=== PATIENT | male | born 1960 | race African-American/Black ===

== ENCOUNTER 2020-04-18 15:40 | Observation (INO) ==
[2020-04-18] MEDS ORDERED: hydrALAZINE 20 MG/1 ML VIAL IV STA (17:02)
[2020-04-18 17:43] LABS: Basophils % 0.8 % (0.0-0.8); Eosinophils # 0.4 10*3/uL (0.0-0.87); Eosinophils % 8.8 % (0.00-10.9); Hematocrit 32.8 VOL% (42.0-52.0); Hemoglobin 10.9 GM/DL (14.0-18.0); Immature Granulocytes % 0.2 %; Immature Granulocytes Absolute 0.01 #; Lymphocytes # 0.8 10*3/uL (1.4-4.0); Lymphocytes % 17.2 % (21.2-54.2); Mean Corpuscular HGB Conc 33.2 GM/DL (32-36); Mean Corpuscular Volume 84.5 FL (87-102); Monocytes % 9.4 % (1.7-12.7); Neutrophils % 63.6 % (38.7-73.9); Platelet Count 194 T/CUMM (130-400); Red Blood Count 3.88 MC/CUMM (3.8-5.5); Red Cell Distribution Width 17.1 % (9.3-17.3); White Blood Count 4.8 T/CUMM (4-12)
[2020-04-18 17:56] LABS: PT Patient Result 10.9 SECS (9.8-11.9); Partial Thromboplastin Time 29.6 SECS (23.9-33.8)
[2020-04-18 18:15] LABS: Alanine Aminotransferase 20 U/L (16-61); Albumin 3.2 G/DL (3.4-5.0); Alkaline Phosphatase 102 U/L (45-117); Aspartate Amino Transferase 20 U/L (0-37); Blood Urea Nitrogen 33 MG/DL (7-18); Calcium 9.2 MG/DL (8.5-10.1); Carbon Dioxide 35 MMOL/L (21-32); Estimated Glom Filtration Rate 8 ML/MIN; Glucose 95 MG/DL (74-106); Osmolality,Calculated 285.4 MOS/KG (273-304); Potassium 3.7 MMOL/L (3.5-5.1); Sodium 140 MMOL/L (136-145); Total Protein 8.2 G/DL (5.0-7.5)
[2020-04-18 18:21] LABS: Troponin I 0.343 NG/ML (0.00-0.045)
[2020-04-18] MEDS ORDERED: ONDANSETRON 4 MG/2 ML VIAL ONE (18:30)
[2020-04-18] MEDS ORDERED: LABETALOL 20 MG/4 ML SYRINGE IV STA (19:01)
[2020-04-18] MEDS ORDERED: cefTRIAXone 1,000 MG in SODIUM CHLORIDE 0.9% 100 ML IV STA (19:01)
[2020-04-18] MEDS ORDERED: ONDANSETRON 4 MG/2 ML VIAL IV STA (19:09)
[2020-04-18] MEDS ORDERED: amLODIPine 5 MG TABLET PO STA (20:00)
[2020-04-18] MEDS ORDERED: ACETAMINOPHEN 325 MG TABLET PO PRN (20:18)
[2020-04-18] MEDS ORDERED: GLUCAGON 1 MG VIAL IM PRN (20:18)
[2020-04-18] MEDS ORDERED: ONDANSETRON 4 MG/2 ML VIAL IV PRN (20:18)
[2020-04-18] MEDS ORDERED: DEXTROSE 50% 25 GM/50 ML VIAL IV PRN (20:18)
[2020-04-18] MEDS ORDERED: hydrALAZINE 20 MG/1 ML VIAL IV PRN (20:18)
[2020-04-18] MEDS ORDERED: DOCUSATE SODIUM 100 MG CAPSULE PO PRN (20:18)
[2020-04-18] MEDS ORDERED: amLODIPine 10 MG TABLET PO SCH (21:00)
[2020-04-19 06:02] LABS: Basophils % 0.7 % (0.0-0.8); Eosinophils # 0.2 10*3/uL (0.0-0.87); Eosinophils % 3.7 % (0.00-10.9); Hematocrit 30.2 VOL% (42.0-52.0); Hemoglobin 9.8 GM/DL (14.0-18.0); Immature Granulocytes % 0.5 %; Immature Granulocytes Absolute 0.03 #; Lymphocytes # 0.7 10*3/uL (1.4-4.0); Mean Corpuscular HGB Conc 32.5 GM/DL (32-36); Mean Corpuscular Volume 86.5 FL (87-102); Mean Platelet Volume 11.7 FL (9.6-12.0); Monocytes % 7.2 % (1.7-12.7); Neutrophils % 75.9 % (38.7-73.9); Platelet Count 210 T/CUMM (130-400); Red Blood Count 3.49 MC/CUMM (3.8-5.5); Red Cell Distribution Width 17.1 % (9.3-17.3); White Blood Count 6.2 T/CUMM (4-12)
[2020-04-19 06:48] LABS: Calcium 8.7 MG/DL (8.5-10.1); Osmolality,Calculated 293.1 MOS/KG (273-304); Potassium 4.1 MMOL/L (3.5-5.1); Thyroid Stimulating Hormone 2.21 uIU/ml (0.358-3.74)
[2020-04-19] MEDS: METOPROLOL SUCCINATE XL 100 MG TABLET PO SCH (09:38)
[2020-04-19] MEDS: PANTOPRAZOLE 40 MG TABLET PO SCH (09:38)
[2020-04-19] MEDS: MULTIVITAMIN (BEROCCA) TABLET PO SCH (09:38)
[2020-04-19] MEDS: amLODIPine 10 MG TABLET PO SCH (09:38)
[2020-04-19] MEDS: ASPIRIN EC 81 MG TABLET PO SCH (09:38)
[2020-04-20 07:57] LABS: Basophils # 0.1 10*3/uL (0.0-0.2); Basophils % 0.8 % (0.0-0.8); Eosinophils # 0.7 10*3/uL (0.0-0.87); Eosinophils % 8.9 % (0.00-10.9); Hematocrit 33.5 VOL% (42.0-52.0); Hemoglobin 10.7 GM/DL (14.0-18.0); Immature Granulocytes % 0.1 %; Immature Granulocytes Absolute 0.01 #; Lymphocytes # 1.3 10*3/uL (1.4-4.0); Lymphocytes % 18.2 % (21.2-54.2); Mean Corpuscular HGB Conc 31.9 GM/DL (32-36); Mean Corpuscular Volume 87.2 FL (87-102); Mean Platelet Volume 10.9 FL (9.6-12.0); Monocytes % 7.3 % (1.7-12.7); Neutrophils % 64.7 % (38.7-73.9); Platelet Count 212 T/CUMM (130-400); Red Blood Count 3.84 MC/CUMM (3.8-5.5); Red Cell Distribution Width 17.1 % (9.3-17.3); White Blood Count 7.3 T/CUMM (4-12)
[2020-04-20 08:14] LABS: Calcium 9.2 MG/DL (8.5-10.1); Osmolality,Calculated 282.5 MOS/KG (273-304); Potassium 4.4 MMOL/L (3.5-5.1)
[2020-04-20 08:26] VITALS: BP 156/75
[2020-04-20] MEDS: ASPIRIN EC 81 MG TABLET PO SCH (09:27)
[2020-04-20] MEDS: PANTOPRAZOLE 40 MG TABLET PO SCH (09:28)
[2020-04-20] MEDS: METOPROLOL SUCCINATE XL 100 MG TABLET PO SCH (09:28)
[2020-04-20] MEDS: amLODIPine 10 MG TABLET PO SCH (09:28)
[2020-04-20] MEDS: MULTIVITAMIN (BEROCCA) TABLET PO SCH (09:28)
== END 2020-04-20 15:12 | disposition home or self-care (01) ==
LOC: N.ED 15:40 → N.EDINP 15:40 → N.TELES 04-19 03:43
PROVIDERS: ADMIT Internal Medicine; ATTEND Internal Medicine

== ENCOUNTER 2020-11-02 06:41 | Inpatient (IN) ==
[2020-11-02] MEDS ORDERED: ONDANSETRON 4 MG/2 ML VIAL IV PRN (07:07)
[2020-11-02] MEDS: SODIUM CHLORIDE 0.9% 1,000 ML IV SCH (07:30)
[2020-11-02] MEDS ORDERED: ETOMIDATE 20 MG/10 ML VIAL IV ONE (08:46)
[2020-11-02] MEDS ORDERED: LIDOCAINE 2% 5 ML VIAL ONE ×2 (08:46→13:21)
[2020-11-02] MEDS ORDERED: propofoL 200 MG/20 ML VIAL IV ONE (08:46)
[2020-11-02] MEDS ORDERED: ONDANSETRON 4 MG/2 ML VIAL ONE (09:04)
[2020-11-02 09:51] LABS: Basophils # 0.1 10*3/uL (0.0-0.2); Basophils % 0.6 % (0.0-0.8); Eosinophils # 0.3 10*3/uL (0.0-0.87); Eosinophils % 3.5 % (0.00-10.9); Hematocrit 31.3 VOL% (42.0-52.0); Hemoglobin 9.6 GM/DL (14.0-18.0); Immature Granulocytes % 0.3 %; Immature Granulocytes Absolute 0.03 #; Lymphocytes # 1.3 10*3/uL (1.4-4.0); Lymphocytes % 13.8 % (21.2-54.2); Mean Corpuscular HGB Conc 30.7 GM/DL (32-36); Mean Corpuscular Volume 94.6 FL (87-102); Mean Platelet Volume 10.8 FL (9.6-12.0); Monocytes % 7.6 % (1.7-12.7); Neutrophils % 74.2 % (38.7-73.9); Platelet Count 239 T/CUMM (130-400); Red Blood Count 3.31 MC/CUMM (3.8-5.5); Red Cell Distribution Width 16.3 % (9.3-17.3); White Blood Count 9.1 T/CUMM (4-12)
[2020-11-02 09:59] LABS: PT Patient Result 11.1 SECS (10.5-12.0)
[2020-11-02 10:04] LABS: Calcium 8.5 MG/DL (8.5-10.1); Osmolality,Calculated 292.5 MOS/KG (273-304); Potassium 3.8 MMOL/L (3.5-5.1)
[2020-11-02] MEDS ORDERED: ACETAMINOPHEN 325 MG TABLET PO PRN (10:37)
[2020-11-02] MEDS ORDERED: DEXTROSE 50% 25 GM/50 ML VIAL IV PRN (10:37)
[2020-11-02] MEDS ORDERED: GLUCAGON 1 MG VIAL IM PRN (10:37)
[2020-11-02] MEDS ORDERED: PANTOPRAZOLE 40 MG VIAL IV ONE (10:40)
[2020-11-02 11:54] LABS: ABG Base Excess 2.9 MMOL/L (-2.5-2.5); ABG HCO3 39.6 MMOL/L (20-26); ABG PO2 234.2 MM HG (80-95); ABG TCO2 44.4 MMOL/L (23-27)
[2020-11-02 11:57] LABS: ABG PH 7.018 (7.35-7.45)
[2020-11-02 11:58] LABS: ABG PCO2 157.6 MM HG (35-48)
[2020-11-02] MEDS ORDERED: PHENYLEPHRINE 1 MG/10 ML SYRINGE IV ONE (12:07)
[2020-11-02] MEDS ORDERED: ALBUTEROL/IPRATROPIUM 3 ML NEB RESP TX ONE (12:14)
[2020-11-02] MEDS ORDERED: PHENYLEPHRINE 10 MG/1 ML VIAL IV ONE (12:26)
[2020-11-02 13:01] LABS: Basophils % 0.4 % (0.0-0.8); Eosinophils # 0.2 10*3/uL (0.0-0.87); Eosinophils % 2.2 % (0.00-10.9); Hemoglobin 8.1 GM/DL (14.0-18.0); Immature Granulocytes % 0.8 %; Immature Granulocytes Absolute 0.06 #; Lymphocytes # 1.3 10*3/uL (1.4-4.0); Mean Corpuscular HGB Conc 31.2 GM/DL (32-36); Mean Corpuscular Volume 92.2 FL (87-102); Mean Platelet Volume 11.5 FL (9.6-12.0); Monocytes % 8.2 % (1.7-12.7); NRBC # 0.02 10*3/uL; Neutrophils % 72.4 % (38.7-73.9); Platelet Count 217 T/CUMM (130-400); Red Blood Count 2.82 MC/CUMM (3.8-5.5); Red Cell Distribution Width 16.2 % (9.3-17.3); White Blood Count 7.8 T/CUMM (4-12)
[2020-11-02 13:20] LABS: ABG Base Excess 7.4 MMOL/L (-2.5-2.5); ABG HCO3 31.3 MMOL/L (20-26); ABG PCO2 39.9 MM HG (35-48); ABG PH 7.501 (7.35-7.45)
[2020-11-02] MEDS ORDERED: ROCURONIUM 50 MG/5 ML VIAL IV ONE (13:20)
[2020-11-02 13:21] LABS: Alanine Aminotransferase 11 U/L (16-61); Albumin 2.4 G/DL (3.4-5.0); Alkaline Phosphatase 70 U/L (45-117); Aspartate Amino Transferase 14 U/L (0-37); Bilirubin,Total < 0.39 MG/DL (0.20-1.00); Blood Urea Nitrogen 51 MG/DL (7-18); Calcium 7.9 MG/DL (8.5-10.1); Carbon Dioxide 32 MMOL/L (21-32); Estimated Glom Filtration Rate 12 ML/MIN; Glucose 157 MG/DL (74-106); Potassium 3.9 MMOL/L (3.5-5.1); Sodium 143 MMOL/L (136-145); Total Protein 5.9 G/DL (6.4-8.2)
[2020-11-02] MEDS ORDERED: EPINEPHrine 1 MG/10 ML SYRINGE ONE (13:21)
[2020-11-02] MEDS ORDERED: SEVOFLURANE 1 UNIT/15 MINUTE INH ONE (13:21)
[2020-11-02] MEDS ORDERED: SUCCINYLCHOLINE 200 MG/10 ML VIAL ONE (13:21)
[2020-11-02] MEDS ORDERED: EPINEPHrine 1 MG/ML VIAL ONE (13:21)
[2020-11-02] MEDS ORDERED: SODIUM CHLORIDE 0.9% 500 ML IV ONE (13:21)
[2020-11-02 13:22] LABS: CKMB % 8.2 %
[2020-11-02 13:29] LABS: Eosinophils 1 % (0-10); Lymphocytes 16 % (20-55); Segmented Neutrophils 80 % (50-85); Total Cells Counted 100
[2020-11-02 13:30] LABS: High Sensitive Troponin I* 821.5 ng/L (0-78); Microcytosis 1+; Platelet Estimate Normal; Spherocytes Slight; Target Cells Slight
[2020-11-02] MEDS ORDERED: fentaNYL INJ 1,250 MCG in SODIUM CHLORIDE 0.9% 225 ML IV PRN (13:36)
[2020-11-02] MEDS ORDERED: MIDAZOLAM 2 MG/2 ML VIAL ONE (13:40)
[2020-11-02] MEDS ORDERED: PHENYLEPHRINE INJ 160 MG in SODIUM CHLORIDE 0.9% 234 ML IV PRN (13:54)
[2020-11-02] MEDS ORDERED: MIDAZOLAM 2 MG/2 ML VIAL IV ONE (14:04)
[2020-11-02] MEDS ORDERED: NOREPINEPHRINE 4 MG/4 ML VIAL IV ONE (14:24)
[2020-11-02] MEDS: NOREPINEPHRINE 16 MG in SODIUM CHLORIDE 0.9% 234 ML IV PRN ×2 (14:26→20:20)
[2020-11-02 14:56] LABS: ABG Base Excess 3.6 MMOL/L (-2.5-2.5); ABG HCO3 27.6 MMOL/L (20-26); ABG PCO2 32.9 MM HG (35-48); ABG PH 7.513 (7.35-7.45); ABG TCO2 24.3 MMOL/L (23-27)
[2020-11-02] MEDS ORDERED: LIDOCAINE 1% 20 ML VIAL ONE ×2 (14:57→23:59)
[2020-11-02] MEDS ORDERED: HEPARIN/NACL 0.9% 2 UNITS/ML 2,000 UNIT/1,000 ML BAG IV ONE (14:57)
[2020-11-02 15:28] LABS: CKMB % 8.9 %
[2020-11-02] MEDS: MIDAZOLAM 100 MG in SODIUM CHLORIDE 0.9% 80 ML IV PRN ×2 (16:22→20:20)
[2020-11-02] MEDS ORDERED: HEPARIN DRIP 25,000 UNITS/500 ML PREMIX IV SCH (16:30)
[2020-11-02 17:27] LABS: Alanine Aminotransferase 12 U/L (16-61); Albumin 2.7 G/DL (3.4-5.0); Alkaline Phosphatase 77 U/L (45-117); Aspartate Amino Transferase 24 U/L (0-37); Bilirubin,Total < 0.39 MG/DL (0.20-1.00); Blood Urea Nitrogen 50 MG/DL (7-18); Calcium 8.1 MG/DL (8.5-10.1); Carbon Dioxide 27 MMOL/L (21-32); Estimated Glom Filtration Rate 12 ML/MIN; Glucose 195 MG/DL (74-106); Osmolality,Calculated 303.8 MOS/KG (273-304); Potassium 2.8 MMOL/L (3.5-5.1); Sodium 144 MMOL/L (136-145); Total Protein 5.8 G/DL (6.4-8.2)
[2020-11-02] MEDS: INSULIN LISPRO 100 UNIT/ML SUBCUT SCH (17:51)
[2020-11-02 18:29] LABS: Hemoglobin 8.4 GM/DL (14.0-18.0)
[2020-11-02] MEDS ORDERED: HEPARIN/NACL 0.9% 2 UNITS/ML 1,000 UNIT/500 ML BAG IV SCH (19:30)
[2020-11-02] MEDS: PANTOPRAZOLE 40 MG VIAL IV SCH (21:50)
[2020-11-02 22:10] LABS: Hematocrit 25.6 VOL% (42.0-52.0); Hemoglobin 8.5 GM/DL (14.0-18.0)
[2020-11-02] MEDS ORDERED: POTASSIUM CHLORIDE RIDER 10 MEQ/100 ML PREMIX IV ONE (23:30)
[2020-11-03] MEDS ORDERED: HEPARIN 5,000 UNIT/1 ML VIAL ONE (00:26)
[2020-11-03] MEDS ORDERED: CLOPIDOGREL 300 MG TABLET ONE (01:34)
[2020-11-03] MEDS: INSULIN LISPRO 100 UNIT/ML SUBCUT SCH ×4 (01:56→18:26)
[2020-11-03 05:22] LABS: ABG Base Excess 1.7 MMOL/L (-2.5-2.5); ABG Oxygen Saturation 99.9 % (95-100); ABG PCO2 31.4 MM HG (35-48); ABG PH 7.502 (7.35-7.45)
[2020-11-03 05:44] LABS: Basophils % 0.1 % (0.0-0.8); Hematocrit 23.1 VOL% (42.0-52.0); Hemoglobin 7.6 GM/DL (14.0-18.0); Immature Granulocytes Absolute 0.15 #; Lymphocytes # 0.3 10*3/uL (1.4-4.0); Lymphocytes % 2.2 % (21.2-54.2); Mean Corpuscular HGB Conc 32.9 GM/DL (32-36); Mean Corpuscular Volume 88.2 FL (87-102); Mean Platelet Volume 11.9 FL (9.6-12.0); Monocytes % 5.5 % (1.7-12.7); Neutrophils % 91.2 % (38.7-73.9); Platelet Count 212 T/CUMM (130-400); Red Blood Count 2.62 MC/CUMM (3.8-5.5); Red Cell Distribution Width 15.7 % (9.3-17.3); White Blood Count 14.4 T/CUMM (4-12)
[2020-11-03 05:51] LABS: Albumin 2.2 G/DL (3.4-5.0); Bilirubin,Total 0.9 MG/DL (0.20-1.00); Osmolality,Calculated 305.3 MOS/KG (273-304); Potassium 2.7 MMOL/L (3.5-5.1); Total Protein 5.4 G/DL (6.4-8.2)
[2020-11-03 06:10] LABS: Anisocytosis 1+; Hypochromasia 1+; Lymphocytes 2 % (20-55); Microcytosis 1+; Segmented Neutrophils 95 % (50-85); Total Cells Counted 100
[2020-11-03 06:11] LABS: Platelet Estimate Normal; Target Cells Slight
[2020-11-03] MEDS ORDERED: POTASSIUM CHLORIDE RIDER 10 MEQ/100 ML PREMIX IV ONE (06:31)
[2020-11-03] MEDS ORDERED: POTASSIUM CHLORIDE RIDER 20 MEQ/100 ML PREMIX IV ONE (06:34)
[2020-11-03] MEDS: ASPIRIN CHEW 81 MG TABLET PO SCH (08:18)
[2020-11-03] MEDS: PANTOPRAZOLE 40 MG VIAL IV SCH ×2 (08:18→22:01)
[2020-11-03] MEDS: SODIUM CHLORIDE 0.9% 1,000 ML IV SCH (08:36)
[2020-11-03] MEDS: MIDAZOLAM 100 MG in SODIUM CHLORIDE 0.9% 80 ML IV PRN (09:20)
[2020-11-03 09:42] LABS: ABG Base Excess 4.8 MMOL/L (-2.5-2.5); ABG HCO3 28.8 MMOL/L (20-26); ABG Oxygen Saturation 99.7 % (95-100); ABG PCO2 32.2 MM HG (35-48); ABG PH 7.538 (7.35-7.45); ABG TCO2 25.3 MMOL/L (23-27)
[2020-11-03 09:44] LABS: Hematocrit 20.6 VOL% (42.0-52.0); Hemoglobin 7.1 GM/DL (14.0-18.0)
[2020-11-03 16:28] LABS: Hematocrit 27.4 VOL% (42.0-52.0); Hemoglobin 9.2 GM/DL (14.0-18.0)
[2020-11-04] MEDS: MIDAZOLAM 100 MG in SODIUM CHLORIDE 0.9% 80 ML IV PRN ×2 (03:31→15:28)
[2020-11-04] MEDS: INSULIN LISPRO 100 UNIT/ML SUBCUT SCH ×4 (03:34→19:00)
[2020-11-04 05:35] LABS: ABG Base Excess 5.3 MMOL/L (-2.5-2.5); ABG HCO3 29.2 MMOL/L (20-26); ABG Oxygen Saturation 99.7 % (95-100); ABG PCO2 35.3 MM HG (35-48); ABG TCO2 23.9 MMOL/L (23-27)
[2020-11-04 05:55] LABS: Basophils % 0.1 % (0.0-0.8); Hematocrit 27.4 VOL% (42.0-52.0); Hemoglobin 9.3 GM/DL (14.0-18.0); Immature Granulocytes % 0.9 %; Immature Granulocytes Absolute 0.14 #; Lymphocytes # 0.4 10*3/uL (1.4-4.0); Lymphocytes % 2.6 % (21.2-54.2); Mean Corpuscular HGB Conc 33.9 GM/DL (32-36); Mean Corpuscular Volume 83.5 FL (87-102); Mean Platelet Volume 11.9 FL (9.6-12.0); Neutrophils % 89.4 % (38.7-73.9); Platelet Count 119 T/CUMM (130-400); Red Blood Count 3.28 MC/CUMM (3.8-5.5); Red Cell Distribution Width 16.3 % (9.3-17.3); White Blood Count 14.7 T/CUMM (4-12)
[2020-11-04 06:02] LABS: Albumin 2.1 G/DL (3.4-5.0); Calcium 8.5 MG/DL (8.5-10.1); Osmolality,Calculated 302.3 MOS/KG (273-304); Potassium 3.5 MMOL/L (3.5-5.1); Total Protein 5.5 G/DL (6.4-8.2)
[2020-11-04 06:53] LABS: Anisocytosis 1+; Band Neutrophils 6 % (0-10); Hypochromasia 1+; Lymphocytes 6 % (20-55); Macrocytosis Slight; Platelet Estimate Adequate; Segmented Neutrophils 83 % (50-85); Smudge Cells Few; Target Cells Few; Total Cells Counted 100
[2020-11-04] MEDS: PANTOPRAZOLE 40 MG VIAL IV SCH ×2 (08:23→21:36)
[2020-11-04] MEDS: ASPIRIN CHEW 81 MG TABLET PO SCH (08:23)
[2020-11-04] MEDS: SODIUM CHLORIDE 0.9% 1,000 ML IV SCH (09:36)
[2020-11-04] MEDS ORDERED: NOREPINEPHRINE 8 MG in SODIUM CHLORIDE 0.9% 242 ML IV PRN (10:30)
[2020-11-04] MEDS: ATORVASTATIN 40 MG TABLET PO SCH (21:16)
[2020-11-04] MEDS: METOPROLOL TARTRATE 25 MG TABLET PO SCH (21:38)
[2020-11-05] MEDS: INSULIN LISPRO 100 UNIT/ML SUBCUT SCH ×4 (00:46→17:34)
[2020-11-05 05:03] LABS: ABG Base Excess 4.9 MMOL/L (-2.5-2.5); ABG HCO3 28.6 MMOL/L (20-26); ABG Oxygen Saturation 98.5 % (95-100); ABG PCO2 38.7 MM HG (35-48); ABG PH 7.486 (7.35-7.45); ABG PO2 139.3 MM HG (80-95); ABG TCO2 29.8 MMOL/L (23-27)
[2020-11-05 05:16] LABS: Basophils % 0.1 % (0.0-0.8); Eosinophils % 0.2 % (0.00-10.9); Hematocrit 27.3 VOL% (42.0-52.0); Hemoglobin 9.2 GM/DL (14.0-18.0); Immature Granulocytes % 1.6 %; Immature Granulocytes Absolute 0.24 #; Lymphocytes # 0.4 10*3/uL (1.4-4.0); Lymphocytes % 2.9 % (21.2-54.2); Mean Corpuscular HGB Conc 33.7 GM/DL (32-36); Mean Platelet Volume 12.7 FL (9.6-12.0); Neutrophils % 90.2 % (38.7-73.9); Platelet Count 119 T/CUMM (130-400); Red Blood Count 3.21 MC/CUMM (3.8-5.5); Red Cell Distribution Width 16.2 % (9.3-17.3); White Blood Count 15.1 T/CUMM (4-12)
[2020-11-05 05:36] LABS: Alanine Aminotransferase 38 U/L (16-61); Albumin 1.8 G/DL (3.4-5.0); Alkaline Phosphatase 82 U/L (45-117); Aspartate Amino Transferase 120 U/L (0-37); Bilirubin,Total < 0.39 MG/DL (0.20-1.00); Blood Urea Nitrogen 63 MG/DL (7-18); Calcium 8.3 MG/DL (8.5-10.1); Carbon Dioxide 29 MMOL/L (21-32); Estimated Glom Filtration Rate 11 ML/MIN; Glucose 163 MG/DL (74-106); Potassium 3.8 MMOL/L (3.5-5.1); Sodium 136 MMOL/L (136-145); Total Protein 5.5 G/DL (6.4-8.2)
[2020-11-05 05:37] LABS: Risk Ratio 3.42; VLDL Cholesterol 26.2 MG/DL
[2020-11-05 05:41] LABS: Anisocytosis 3+; Band Neutrophils 10 % (0-10); Lymphocytes 4 % (20-55); Ovalocytes Few; Platelet Estimate Adequate; Segmented Neutrophils 82 % (50-85); Smudge Cells Few; Target Cells Few; Total Cells Counted 100
[2020-11-05 05:42] LABS: Macrocytosis 1+
[2020-11-05] MEDS: PANTOPRAZOLE 40 MG VIAL IV SCH ×2 (08:14→21:42)
[2020-11-05] MEDS: METOPROLOL TARTRATE 25 MG TABLET PO SCH ×2 (08:15→21:41)
[2020-11-05] MEDS: ASPIRIN CHEW 81 MG TABLET PO SCH (08:15)
[2020-11-05] MEDS: MIDAZOLAM 100 MG in SODIUM CHLORIDE 0.9% 80 ML IV PRN (08:30)
[2020-11-05] MEDS ORDERED: CLOPIDOGREL 75 MG TABLET PO SCH (09:00)
[2020-11-05] MEDS: ATORVASTATIN 40 MG TABLET PO SCH (21:41)
[2020-11-06] MEDS: INSULIN LISPRO 100 UNIT/ML SUBCUT SCH ×5 (01:56→23:47)
[2020-11-06 03:48] LABS: ABG Base Excess 3.7 MMOL/L (-2.5-2.5); ABG HCO3 29.6 MMOL/L (20-26); ABG Oxygen Saturation 98.6 % (95-100); ABG PH 7.381 (7.35-7.45); ABG PO2 152.9 MM HG (80-95); ABG TCO2 31.1 MMOL/L (23-27)
[2020-11-06 03:55] LABS: Basophils % 0.1 % (0.0-0.8); Eosinophils # 0.1 10*3/uL (0.0-0.87); Eosinophils % 0.5 % (0.00-10.9); Hemoglobin 9.2 GM/DL (14.0-18.0); Immature Granulocytes % 1.2 %; Immature Granulocytes Absolute 0.18 #; Lymphocytes # 0.3 10*3/uL (1.4-4.0); Mean Corpuscular HGB Conc 32.9 GM/DL (32-36); Mean Corpuscular Volume 86.2 FL (87-102); Neutrophils % 91.2 % (38.7-73.9); Platelet Count 148 T/CUMM (130-400); Red Blood Count 3.25 MC/CUMM (3.8-5.5); White Blood Count 14.8 T/CUMM (4-12)
[2020-11-06 04:11] LABS: Lymphocytes 4 % (20-55); Platelet Estimate Adequate; Segmented Neutrophils 93 % (50-85); Total Cells Counted 100
[2020-11-06 04:12] LABS: Hypochromasia 1+; Microcytosis 1+
[2020-11-06 04:19] LABS: Albumin 1.7 G/DL (3.4-5.0); Bilirubin,Total 0.4 MG/DL (0.20-1.00); Calcium 8.3 MG/DL (8.5-10.1); Osmolality,Calculated 288.5 MOS/KG (273-304); Potassium 4.1 MMOL/L (3.5-5.1); Total Protein 5.7 G/DL (6.4-8.2)
[2020-11-06] MEDS: PANTOPRAZOLE 40 MG VIAL IV SCH ×2 (08:24→21:12)
[2020-11-06] MEDS: ASPIRIN CHEW 81 MG TABLET PO SCH (08:24)
[2020-11-06] MEDS: METOPROLOL TARTRATE 25 MG TABLET PO SCH ×2 (08:24→21:10)
[2020-11-06] MEDS ORDERED: DEXMEDETOMIDINE 200 MCG in SODIUM CHLORIDE 0.9% 48 ML IV PRN (09:37)
[2020-11-06] MEDS ORDERED: NOREPINEPHRINE 4 MG/4 ML VIAL IV ONE (11:42)
[2020-11-06] MEDS: NOREPINEPHRINE 8 MG in SODIUM CHLORIDE 0.9% 242 ML IV PRN (11:45)
[2020-11-06] MEDS: COLCHICINE 0.6 MG CAPSULE PO SCH (21:10)
[2020-11-06] MEDS: ATORVASTATIN 40 MG TABLET PO SCH (21:10)
[2020-11-06] MEDS: MIDAZOLAM 100 MG in SODIUM CHLORIDE 0.9% 80 ML IV PRN (21:40)
[2020-11-07 04:25] LABS: ABG Base Excess 3.4 MMOL/L (-2.5-2.5); ABG HCO3 27.4 MMOL/L (20-26); ABG Oxygen Saturation 98.7 % (95-100); ABG PCO2 45.7 MM HG (35-48); ABG PH 7.408 (7.35-7.45); ABG TCO2 24.7 MMOL/L (23-27)
[2020-11-07 04:29] LABS: Basophils % 0.1 % (0.0-0.8); Eosinophils % 0.3 % (0.00-10.9); Hematocrit 26.8 VOL% (42.0-52.0); Hemoglobin 8.9 GM/DL (14.0-18.0); Immature Granulocytes % 0.5 %; Immature Granulocytes Absolute 0.06 #; Lymphocytes # 0.3 10*3/uL (1.4-4.0); Lymphocytes % 2.3 % (21.2-54.2); Mean Corpuscular HGB Conc 33.2 GM/DL (32-36); Mean Corpuscular Volume 85.4 FL (87-102); Mean Platelet Volume 12.6 FL (9.6-12.0); Monocytes % 7.7 % (1.7-12.7); Neutrophils % 89.1 % (38.7-73.9); Platelet Count 154 T/CUMM (130-400); Red Blood Count 3.14 MC/CUMM (3.8-5.5); White Blood Count 11.6 T/CUMM (4-12)
[2020-11-07 04:44] LABS: Alanine Aminotransferase 31 U/L (16-61); Albumin 1.5 G/DL (3.4-5.0); Alkaline Phosphatase 91 U/L (45-117); Aspartate Amino Transferase 34 U/L (0-37); Bilirubin,Total < 0.39 MG/DL (0.20-1.00); Blood Urea Nitrogen 47 MG/DL (7-18); Calcium 8.1 MG/DL (8.5-10.1); Carbon Dioxide 29 MMOL/L (21-32); Estimated Glom Filtration Rate 15 ML/MIN; Glucose 113 MG/DL (74-106); Osmolality,Calculated 287.7 MOS/KG (273-304); Potassium 4.3 MMOL/L (3.5-5.1); Sodium 138 MMOL/L (136-145); Total Protein 5.7 G/DL (6.4-8.2)
[2020-11-07 04:50] LABS: Eosinophils 1 % (0-10); Hypochromasia 1+; Lymphocytes 2 % (20-55); Segmented Neutrophils 92 % (50-85); Total Cells Counted 100
[2020-11-07 04:51] LABS: Anisocytosis 1+; Microcytosis 1+; Target Cells Slight
[2020-11-07] MEDS: INSULIN LISPRO 100 UNIT/ML SUBCUT SCH ×3 (06:13→17:19)
[2020-11-07] MEDS: COLCHICINE 0.6 MG CAPSULE PO SCH ×2 (08:23→20:58)
[2020-11-07] MEDS: METOPROLOL TARTRATE 25 MG TABLET PO SCH ×2 (08:23→20:58)
[2020-11-07] MEDS: ASPIRIN CHEW 81 MG TABLET PO SCH (08:23)
[2020-11-07] MEDS: PANTOPRAZOLE 40 MG VIAL IV SCH ×2 (08:24→21:00)
[2020-11-07] MEDS: NOREPINEPHRINE 8 MG in SODIUM CHLORIDE 0.9% 242 ML IV PRN (10:12)
[2020-11-07] MEDS: ATORVASTATIN 40 MG TABLET PO SCH (20:58)
[2020-11-08] MEDS: INSULIN LISPRO 100 UNIT/ML SUBCUT SCH ×4 (00:11→18:51)
[2020-11-08 04:22] LABS: ABG Base Excess 1.8 MMOL/L (-2.5-2.5); ABG HCO3 28.7 MMOL/L (20-26); ABG Oxygen Saturation 96.2 % (95-100); ABG PCO2 57.2 MM HG (35-48); ABG PH 7.318 (7.35-7.45); ABG PO2 88.8 MM HG (80-95); ABG TCO2 30.4 MMOL/L (23-27)
[2020-11-08 04:24] LABS: Basophils % 0.2 % (0.0-0.8); Eosinophils % 0.3 % (0.00-10.9); Hematocrit 29.9 VOL% (42.0-52.0); Hemoglobin 9.5 GM/DL (14.0-18.0); Immature Granulocytes % 0.3 %; Immature Granulocytes Absolute 0.04 #; Lymphocytes # 0.2 10*3/uL (1.4-4.0); Lymphocytes % 2.1 % (21.2-54.2); Mean Corpuscular HGB Conc 31.8 GM/DL (32-36); Mean Corpuscular Volume 88.5 FL (87-102); Monocytes % 8.9 % (1.7-12.7); Neutrophils % 88.2 % (38.7-73.9); Platelet Count 210 T/CUMM (130-400); Red Blood Count 3.38 MC/CUMM (3.8-5.5); Red Cell Distribution Width 15.9 % (9.3-17.3); White Blood Count 11.5 T/CUMM (4-12)
[2020-11-08 04:45] LABS: Eosinophils 2 % (0-10); Lymphocytes 2 % (20-55); Platelet Estimate Normal; Segmented Neutrophils 88 % (50-85); Total Cells Counted 100
[2020-11-08 04:54] LABS: Alanine Aminotransferase 26 U/L (16-61); Albumin 1.6 G/DL (3.4-5.0); Alkaline Phosphatase 102 U/L (45-117); Aspartate Amino Transferase 24 U/L (0-37); Bilirubin,Total < 0.39 MG/DL (0.20-1.00); Blood Urea Nitrogen 63 MG/DL (7-18); Calcium 8.8 MG/DL (8.5-10.1); Carbon Dioxide 27 MMOL/L (21-32); Estimated Glom Filtration Rate 11 ML/MIN; Glucose 91 MG/DL (74-106); Potassium 4.5 MMOL/L (3.5-5.1); Sodium 136 MMOL/L (136-145); Total Protein 6.2 G/DL (6.4-8.2)
[2020-11-08] MEDS: ASPIRIN CHEW 81 MG TABLET PO SCH (08:35)
[2020-11-08] MEDS: COLCHICINE 0.6 MG CAPSULE PO SCH ×2 (08:36→20:26)
[2020-11-08] MEDS: PANTOPRAZOLE 40 MG VIAL IV SCH ×2 (08:36→20:26)
[2020-11-08] MEDS: METOPROLOL TARTRATE 25 MG TABLET PO SCH ×2 (08:36→20:26)
[2020-11-08] MEDS: ATORVASTATIN 40 MG TABLET PO SCH (20:26)
[2020-11-09] MEDS: INSULIN LISPRO 100 UNIT/ML SUBCUT SCH ×4 (00:25→18:13)
[2020-11-09 04:31] LABS: ABG Base Excess 2.8 MMOL/L (-2.5-2.5); ABG HCO3 26.9 MMOL/L (20-26); ABG Oxygen Saturation 93.3 % (95-100); ABG PCO2 48.8 MM HG (35-48); ABG PH 7.377 (7.35-7.45); ABG PO2 69.7 MM HG (80-95); ABG TCO2 26.4 MMOL/L (23-27)
[2020-11-09 04:35] LABS: Basophils % 0.1 % (0.0-0.8); Hematocrit 27.9 VOL% (42.0-52.0); Hemoglobin 9.1 GM/DL (14.0-18.0); Immature Granulocytes % 0.2 %; Immature Granulocytes Absolute 0.02 #; Lymphocytes # 0.2 10*3/uL (1.4-4.0); Lymphocytes % 1.8 % (21.2-54.2); Mean Corpuscular HGB Conc 32.6 GM/DL (32-36); Mean Corpuscular Volume 86.1 FL (87-102); Mean Platelet Volume 11.3 FL (9.6-12.0); Monocytes % 11.5 % (1.7-12.7); Neutrophils % 86.4 % (38.7-73.9); Platelet Count 221 T/CUMM (130-400); Red Blood Count 3.24 MC/CUMM (3.8-5.5); Red Cell Distribution Width 15.7 % (9.3-17.3); White Blood Count 8.8 T/CUMM (4-12)
[2020-11-09 04:54] LABS: Calcium 8.6 MG/DL (8.5-10.1); Osmolality,Calculated 286.7 MOS/KG (273-304); Potassium 4.2 MMOL/L (3.5-5.1)
[2020-11-09 04:55] LABS: Band Neutrophils 8 % (0-10); Hypochromasia 1+; Lymphocytes 1 % (20-55); Microcytosis 1+; Platelet Estimate Adequate; Segmented Neutrophils 85 % (50-85); Total Cells Counted 100
[2020-11-09] MEDS: METOPROLOL TARTRATE 25 MG TABLET PO SCH ×2 (08:25→20:32)
[2020-11-09] MEDS: PANTOPRAZOLE 40 MG VIAL IV SCH ×2 (08:25→20:33)
[2020-11-09] MEDS: COLCHICINE 0.6 MG CAPSULE PO SCH ×2 (08:25→20:32)
[2020-11-09] MEDS: ASPIRIN CHEW 81 MG TABLET PO SCH (08:26)
[2020-11-09] MEDS: NOREPINEPHRINE 8 MG in SODIUM CHLORIDE 0.9% 242 ML IV PRN ×4 (08:36→22:56)
[2020-11-09] MEDS ORDERED: NOREPINEPHRINE 4 MG/4 ML VIAL IV ONE (17:27)
[2020-11-09] MEDS: ATORVASTATIN 40 MG TABLET PO SCH (20:33)
[2020-11-10] MEDS: INSULIN LISPRO 100 UNIT/ML SUBCUT SCH ×4 (00:06→17:52)
[2020-11-10] MEDS: NOREPINEPHRINE 8 MG in SODIUM CHLORIDE 0.9% 242 ML IV PRN ×2 (04:20→07:15)
[2020-11-10 05:08] LABS: ABG Base Excess -2.2 MMOL/L (-2.5-2.5); ABG HCO3 22.5 MMOL/L (20-26); ABG Oxygen Saturation 93.9 % (95-100); ABG PCO2 64.9 MM HG (35-48); ABG PH 7.223 (7.35-7.45); ABG PO2 82.3 MM HG (80-95); ABG TCO2 24.9 MMOL/L (23-27)
[2020-11-10 05:11] LABS: Basophils # 0.1 10*3/uL (0.0-0.2); Basophils % 0.5 % (0.0-0.8); Hematocrit 32.7 VOL% (42.0-52.0); Hemoglobin 10.6 GM/DL (14.0-18.0); Immature Granulocytes % 0.5 %; Immature Granulocytes Absolute 0.09 #; Lymphocytes # 0.3 10*3/uL (1.4-4.0); Lymphocytes % 1.5 % (21.2-54.2); Mean Corpuscular HGB Conc 32.4 GM/DL (32-36); Mean Corpuscular Volume 87.4 FL (87-102); Mean Platelet Volume 11.3 FL (9.6-12.0); Monocytes % 8.1 % (1.7-12.7); Neutrophils % 89.4 % (38.7-73.9); Platelet Count 347 T/CUMM (130-400); Red Blood Count 3.74 MC/CUMM (3.8-5.5); Red Cell Distribution Width 15.9 % (9.3-17.3); White Blood Count 17.5 T/CUMM (4-12)
[2020-11-10 05:18] LABS: Calcium 8.9 MG/DL (8.5-10.1); Potassium 4.7 MMOL/L (3.5-5.1)
[2020-11-10 05:45] LABS: Band Neutrophils 8 % (0-10); Platelet Estimate Adequate; Segmented Neutrophils 86 % (50-85); Total Cells Counted 100
[2020-11-10 05:46] LABS: Hypochromasia Slight; Microcytosis Slight; Target Cells Slight
[2020-11-10] MEDS: PANTOPRAZOLE 40 MG VIAL IV SCH ×2 (08:37→20:34)
[2020-11-10] MEDS: METOPROLOL TARTRATE 25 MG TABLET PO SCH ×2 (08:38→20:34)
[2020-11-10] MEDS: COLCHICINE 0.6 MG CAPSULE PO SCH ×2 (08:38→20:34)
[2020-11-10] MEDS: ASPIRIN CHEW 81 MG TABLET PO SCH (08:38)
[2020-11-10] MEDS: NOREPINEPHRINE 16 MG in SODIUM CHLORIDE 0.9% 242 ML IV PRN ×3 (11:40→21:08)
[2020-11-10] MEDS ORDERED: ALBUMIN 25% 25 GM/100 ML VIAL IV ONE (13:15)
[2020-11-10] MEDS: ATORVASTATIN 40 MG TABLET PO SCH (20:34)
[2020-11-11] MEDS: INSULIN LISPRO 100 UNIT/ML SUBCUT SCH ×4 (00:50→18:20)
[2020-11-11 04:58] LABS: ABG Base Excess -1.4 MMOL/L (-2.5-2.5); ABG HCO3 23.2 MMOL/L (20-26); ABG Oxygen Saturation 97.2 % (95-100); ABG PCO2 67.3 MM HG (35-48); ABG PH 7.219 (7.35-7.45); ABG PO2 96.9 MM HG (80-95); ABG TCO2 25.9 MMOL/L (23-27)
[2020-11-11 05:01] LABS: Basophils % 0.2 % (0.0-0.8); Hemoglobin 8.8 GM/DL (14.0-18.0); Immature Granulocytes % 0.6 %; Immature Granulocytes Absolute 0.11 #; Lymphocytes # 0.4 10*3/uL (1.4-4.0); Lymphocytes % 2.3 % (21.2-54.2); Mean Corpuscular HGB Conc 30.3 GM/DL (32-36); Mean Corpuscular Volume 90.9 FL (87-102); Mean Platelet Volume 10.7 FL (9.6-12.0); Monocytes % 6.3 % (1.7-12.7); Neutrophils % 90.6 % (38.7-73.9); Platelet Count 361 T/CUMM (130-400); Red Blood Count 3.19 MC/CUMM (3.8-5.5); Red Cell Distribution Width 16.2 % (9.3-17.3); White Blood Count 17.5 T/CUMM (4-12)
[2020-11-11 05:23] LABS: Calcium 8.3 MG/DL (8.5-10.1); Osmolality,Calculated 289.8 MOS/KG (273-304); Potassium 4.4 MMOL/L (3.5-5.1)
[2020-11-11 05:32] LABS: Band Neutrophils 5 % (0-10); Hypochromasia Slight; Lymphocytes 1 % (20-55); Platelet Estimate Normal; Segmented Neutrophils 90 % (50-85); Total Cells Counted 100
[2020-11-11] MEDS: NOREPINEPHRINE 16 MG in SODIUM CHLORIDE 0.9% 242 ML IV PRN (08:00)
[2020-11-11] MEDS: METOPROLOL TARTRATE 25 MG TABLET PO SCH ×2 (10:26→21:18)
[2020-11-11] MEDS: COLCHICINE 0.6 MG CAPSULE PO SCH ×2 (10:26→21:17)
[2020-11-11] MEDS: PANTOPRAZOLE 40 MG VIAL IV SCH ×2 (10:26→21:18)
[2020-11-11] MEDS: ASPIRIN CHEW 81 MG TABLET PO SCH (10:26)
[2020-11-11] MEDS: NOREPINEPHRINE 16 MG in SODIUM CHLORIDE 0.9% 234 ML IV PRN ×2 (14:00→18:30)
[2020-11-11 18:41] LABS: Hematocrit 24.9 VOL% (42.0-52.0); Hemoglobin 7.7 GM/DL (14.0-18.0)
[2020-11-11] MEDS: ATORVASTATIN 40 MG TABLET PO SCH (21:18)
[2020-11-11 22:36] LABS: Hematocrit 20.3 VOL% (42.0-52.0)
[2020-11-11 22:38] LABS: Hemoglobin 6.4 GM/DL (14.0-18.0)
[2020-11-11] MEDS ORDERED: SODIUM CHLORIDE 0.9% 1,000 ML IV PRN (22:44)
[2020-11-11] MEDS ORDERED: PHENYLEPHRINE DRIP 40 MG/250 ML PREMIX IV PRN (22:54)
[2020-11-11] MEDS ORDERED: SODIUM CHLORIDE 0.9% 500 ML IV ONE (22:55)
[2020-11-12] MEDS: INSULIN LISPRO 100 UNIT/ML SUBCUT SCH ×4 (01:00→19:22)
[2020-11-12] MEDS: NOREPINEPHRINE 16 MG in SODIUM CHLORIDE 0.9% 234 ML IV PRN ×5 (02:00→19:26)
[2020-11-12 04:11] LABS: ABG Base Excess -5.5 MMOL/L (-2.5-2.5); ABG HCO3 19.8 MMOL/L (20-26); ABG Oxygen Saturation 99.6 % (95-100); ABG PCO2 50.9 MM HG (35-48); ABG TCO2 20.8 MMOL/L (23-27)
[2020-11-12 04:18] LABS: Basophils # 0.1 10*3/uL (0.0-0.2); Basophils % 0.3 % (0.0-0.8); Hematocrit 22.9 VOL% (42.0-52.0); Hemoglobin 7.3 GM/DL (14.0-18.0); Immature Granulocytes % 1.5 %; Immature Granulocytes Absolute 0.26 #; Lymphocytes # 0.5 10*3/uL (1.4-4.0); Mean Corpuscular HGB Conc 31.9 GM/DL (32-36); Mean Corpuscular Volume 90.2 FL (87-102); Mean Platelet Volume 10.9 FL (9.6-12.0); Monocytes % 6.2 % (1.7-12.7); NRBC # 0.02 10*3/uL; Red Cell Distribution Width 15.2 % (9.3-17.3); White Blood Count 17.4 T/CUMM (4-12)
[2020-11-12 04:19] LABS: Platelet Count 222 T/CUMM (130-400); Red Blood Count 2.54 MC/CUMM (3.8-5.5)
[2020-11-12 04:26] LABS: Calcium 7.3 MG/DL (8.5-10.1); Osmolality,Calculated 305.7 MOS/KG (273-304); Potassium 4.8 MMOL/L (3.5-5.1)
[2020-11-12 04:51] LABS: Anisocytosis 1+; Band Neutrophils 3 % (0-10); Hypochromasia 1+; Lymphocytes 2 % (20-55); Microcytosis 1+; Platelet Estimate Normal; Segmented Neutrophils 85 % (50-85); Target Cells Few; Total Cells Counted 100
[2020-11-12] MEDS: ASPIRIN CHEW 81 MG TABLET PO SCH (08:02)
[2020-11-12] MEDS: COLCHICINE 0.6 MG CAPSULE PO SCH ×2 (08:02→21:03)
[2020-11-12] MEDS: METOPROLOL TARTRATE 25 MG TABLET PO SCH ×3 (08:03→21:03)
[2020-11-12] MEDS: PANTOPRAZOLE 40 MG VIAL IV SCH ×2 (08:03→21:04)
[2020-11-12 09:41] LABS: Hematocrit 25.2 VOL% (42.0-52.0); Hemoglobin 8.4 GM/DL (14.0-18.0)
[2020-11-12] MEDS ORDERED: ALBUMIN 25% 25 GM/100 ML VIAL IV ONE (13:04)
[2020-11-12] MEDS ORDERED: SODIUM CHLORIDE 0.9% 1,000 ML IV ONE (13:04)
[2020-11-12] MEDS ORDERED: CEFEPIME 1,000 MG in SODIUM CHLORIDE 0.9% 100 ML IV SCH (13:30)
[2020-11-12 15:36] LABS: ABG Base Excess -9.9 MMOL/L (-2.5-2.5); ABG HCO3 16.3 MMOL/L (20-26); ABG Oxygen Saturation 99.6 % (95-100); ABG PCO2 42.7 MM HG (35-48); ABG PH 7.212 (7.35-7.45); ABG TCO2 16.9 MMOL/L (23-27)
[2020-11-12 15:37] LABS: Basophils % 0.2 % (0.0-0.8); Hematocrit 20.7 VOL% (42.0-52.0); Hemoglobin 6.7 GM/DL (14.0-18.0); Immature Granulocytes % 1.4 %; Immature Granulocytes Absolute 0.18 #; Lymphocytes # 0.7 10*3/uL (1.4-4.0); Mean Corpuscular HGB Conc 32.4 GM/DL (32-36); Mean Platelet Volume 11.4 FL (9.6-12.0); Monocytes % 7.3 % (1.7-12.7); NRBC # 0.03 10*3/uL; Neutrophils % 86.1 % (38.7-73.9); Platelet Count 177 T/CUMM (130-400); Red Cell Distribution Width 14.9 % (9.3-17.3); White Blood Count 13.1 T/CUMM (4-12)
[2020-11-12] MEDS ORDERED: SODIUM CHLORIDE 0.9% 1,000 ML IV PRN (15:49)
[2020-11-12] MEDS ORDERED: SODIUM CHLORIDE 0.9% 1,700 ML IV ONE (15:49)
[2020-11-12 16:32] LABS: Anisocytosis 1+; Lymphocytes 5 % (20-55); Segmented Neutrophils 88 % (50-85); Total Cells Counted 100
[2020-11-12 16:33] LABS: Hypochromasia 1+; Platelet Estimate Adequate; Polychromasia Few
[2020-11-12 17:15] LABS: INR 1.4; PT Patient Result 15.2 SECS (10.5-12.0)
[2020-11-12] MEDS: PHENYLEPHRINE INJ 160 MG in SODIUM CHLORIDE 0.9% 234 ML IV PRN (20:39)
[2020-11-12] MEDS: ATORVASTATIN 40 MG TABLET PO SCH (21:03)
[2020-11-12 22:58] LABS: Hematocrit 24.6 VOL% (42.0-52.0)
[2020-11-12 23:00] LABS: Hemoglobin 8.1 GM/DL (14.0-18.0)
[2020-11-13] MEDS: INSULIN LISPRO 100 UNIT/ML SUBCUT SCH ×2 (00:12→05:33)
[2020-11-13 01:48] LABS: ABG Base Excess -16.8 MMOL/L (-2.5-2.5); ABG HCO3 11.6 MMOL/L (20-26); ABG Oxygen Saturation 99.2 % (95-100); ABG PCO2 29.4 MM HG (35-48); ABG TCO2 10.3 MMOL/L (23-27)
[2020-11-13 01:50] LABS: ABG PH 7.168 (7.35-7.45)
[2020-11-13] MEDS ORDERED: SODIUM BICARBONATE 50 MEQ/50 ML VIAL IV ONE ×4 (02:03→07:04)
[2020-11-13] MEDS: NOREPINEPHRINE 16 MG in SODIUM CHLORIDE 0.9% 234 ML IV PRN ×2 (02:23→05:31)
[2020-11-13 04:22] LABS: Basophils % 0.3 % (0.0-0.8); Hematocrit 20.1 VOL% (42.0-52.0); Hemoglobin 6.7 GM/DL (14.0-18.0); Immature Granulocytes Absolute 0.23 #; Lymphocytes # 0.3 10*3/uL (1.4-4.0); Lymphocytes % 2.1 % (21.2-54.2); Mean Corpuscular HGB Conc 33.3 GM/DL (32-36); Mean Corpuscular Volume 88.2 FL (87-102); Mean Platelet Volume 13.1 FL (9.6-12.0); Monocytes % 6.2 % (1.7-12.7); NRBC # 0.03 10*3/uL; Neutrophils % 89.4 % (38.7-73.9); Red Blood Count 2.28 MC/CUMM (3.8-5.5); Red Cell Distribution Width 14.6 % (9.3-17.3); White Blood Count 11.7 T/CUMM (4-12)
[2020-11-13 04:29] LABS: INR 1.8; PT Patient Result 19.1 SECS (10.5-12.0); Partial Thromboplastin Time 49.5 SECS (23.9-33.8)
[2020-11-13 04:33] LABS: Platelet Count 74 T/CUMM (130-400)
[2020-11-13 04:53] LABS: Alanine Aminotransferase 31 U/L (16-61); Albumin 1.4 G/DL (3.4-5.0); Alkaline Phosphatase 57 U/L (45-117); Aspartate Amino Transferase 64 U/L (0-37); Bilirubin,Total < 0.39 MG/DL (0.20-1.00); Blood Urea Nitrogen 90 MG/DL (7-18); Calcium 7.2 MG/DL (8.5-10.1); Carbon Dioxide 16 MMOL/L (21-32); Estimated Glom Filtration Rate 16 ML/MIN; Glucose 175 MG/DL (74-106); Osmolality,Calculated 325.3 MOS/KG (273-304); Potassium 5.4 MMOL/L (3.5-5.1); Sodium 148 MMOL/L (136-145); Total Protein 3.8 G/DL (6.4-8.2)
[2020-11-13 04:56] LABS: Band Neutrophils 2 % (0-10); Lymphocytes 4 % (20-55); Metamyelocytes 1 %; Microcytosis 1+; Promyelocytes 1 %; Segmented Neutrophils 85 % (50-85); Total Cells Counted 100
[2020-11-13 04:57] LABS: Hypochromasia 1+; Platelet Estimate Decreased; Target Cells Slight
[2020-11-13 05:04] LABS: Calcium 7.2 MG/DL (8.5-10.1); Osmolality,Calculated 325.3 MOS/KG (273-304); Potassium 5.5 MMOL/L (3.5-5.1)
[2020-11-13] MEDS: PHENYLEPHRINE INJ 160 MG in SODIUM CHLORIDE 0.9% 234 ML IV PRN (05:32)
[2020-11-13 06:30] VITALS: BP 33/16
[2020-11-13] MEDS ORDERED: EPINEPHrine 1 MG/10 ML SYRINGE IV ONE ×2 (07:03→07:22)
[2020-11-13] MEDS ORDERED: EPINEPHrine 1 MG/ML VIAL ONE ×2 (07:03→07:17)
[2020-11-13] MEDS ORDERED: SODIUM CHLORIDE 0.9% 1,000 ML IV PRN (07:05)
[2020-11-13 07:16] LABS: ABG HCO3 18.6 MMOL/L (20-26); ABG Oxygen Saturation 98.6 % (95-100); ABG TCO2 22.9 MMOL/L (23-27)
[2020-11-13 07:17] LABS: ABG PH 7.094 (7.35-7.45)
[2020-11-13 07:18] LABS: ABG PCO2 75.1 MM HG (35-48)
[2020-11-13] MEDS ORDERED: SODIUM BICARB INJ 150 MEQ in STERILE WATER INJ 1,000 ML IV SCH (07:30)
[2020-11-13] MEDS ORDERED: INSULIN REGULAR 10 UNIT, CALCIUM GLUCONATE 1,000 MG in DEXTROSE 10% 250 ML IV ONE (07:30)
[2020-11-13] MEDS: ASPIRIN CHEW 81 MG TABLET PO SCH (09:29)
[2020-11-13] MEDS: METOPROLOL TARTRATE 25 MG TABLET PO SCH (09:29)
[2020-11-13] MEDS: COLCHICINE 0.6 MG CAPSULE PO SCH (09:29)
[2020-11-13] MEDS: PANTOPRAZOLE 40 MG VIAL IV SCH (09:30)
== END 2020-11-13 07:25 | disposition expired | DRG 981 ==
LOC: SUATTDRO → N.GILAB 06:41 → SUATTDRO 10:37 → N.CC 10:37
PROVIDERS: ADMIT Internal Medicine; ATTEND Family Medicine
PROC: CLCCHCL (ICD-10-PCS; 2020-11-02 15:15)